=== PATIENT | female | born 1970 | race Two or more races ===

== ENCOUNTER → 2016-12-19 | Outpatient (CLI) | payer OTHER ==
--- NOTE | 2016-12-19 15:28 | REP ---
LEFT FOOT SERIES COMPLETE: 12/19/2016. Clinical history: Left foot injury, trauma with heavy object dropped on the foot. Findings: Four views are provided. There are marginal osteophytes with spurring at the first REGISTERED [employer]IOGRAPHER joint dorsally as well as the talonavicular joint. There is soft tissue swelling along the dorsal foot, but no visible or displaced fracture of the metacarpals or phalanges. The DIP joints of the fourth and fifth toe are fused as anatomic variation. Tarsal bones show no fracture. Subtalar joints are intact. There is minor swelling about the ankle and hindfoot. Impression: 1. Some degenerative changes at the dorsal aspect first MTP joint, other MTP joints and talonavicular joint without visible or displaced fracture of the tarsal bones, metatarsals or phalanges. 3. The hind foot intact, except for some minor degenerative changes. There is some swelling. The toes and their joints are intact. Signed by Samson Flor MD 12/19/2016 04:12 P
== END ==
LOC: M LRY 14:24
PROVIDERS: ATTEND Nurse Practitioner Family
DX: S99.922A Unspecified injury of left foot, initial encounter (principal); X58.XXXA Exposure to other specified factors, initial encounter; Y93.9 Activity, unspecified; Y92.9 Unspecified place or not applicable; Y99.8 Other external cause status